=== PATIENT | female | born 1965 | race Two or more races ===

== ENCOUNTER 2018-06-25 14:01 | Day surgery (SDC) | payer OTHER ==
[2018-06-24 12:14] VITALS: BP 184/91
[2018-06-24 12:57] LABS: HCG UR SG 1.025 (1.003-1.030)
[~2018-06-25] VITALS: Ht 152.4 cm; Wt 102.7 kg
[~2018-06-25 14:01] MED LIST: ARTHRITIS MEDICATION
[2018-06-25] MEDS ORDERED: FENTANYL PF 100 MCG/2ML ONE (14:16)
[2018-06-25] MEDS ORDERED: MIDAZOLAM 1 MG/ML, 2ML ONE (14:16)
[2018-06-25] MEDS ORDERED: SILVER NITRATE STICK TP ONE (14:27)
[2018-06-25] MEDS ORDERED: KETOROLAC 30 MG/1 ML ONE (15:34)
[2018-06-25] MEDS ORDERED: ONDANSETRON 2MG/ML, 2ML ONE ×2 (15:34→18:09)
[2018-06-25] MEDS ORDERED: ROCURONIUM 10 MG/ML,10ML ONE (15:34)
[2018-06-25] MEDS ORDERED: PROPOFOL 10 MG/ML, 20ML ONE (15:34)
[2018-06-25] MEDS ORDERED: SUCCINYLCHOLINE 20 MG/ML, 10ML ONE (15:34)
[2018-06-25] MEDS ORDERED: DEXAMETHASONE 4 MG/ML, 1ML ONE (15:34)
[2018-06-25] MEDS ORDERED: PROMETHAZINE 25 MG/ML, 1ML IV PRN (17:00)
[2018-06-25] MEDS ORDERED: DIAZEPAM 5 MG/ML, 2ML IVPush PRN (17:00)
[2018-06-25] MEDS ORDERED: LORazepam 2 MG/ML, 1ML IVPush PRN (17:00)
[2018-06-25] MEDS ORDERED: ONDANSETRON ODT 8 MG PO PRN (17:00)
[2018-06-25] MEDS ORDERED: HYDROmorphone 2 MG/ML, 1ML IVPush PRN (17:00)
[2018-06-25] MEDS ORDERED: ONDANSETRON 2MG/ML, 2ML IV PRN (17:00)
[2018-06-25] MEDS ORDERED: OXYcodone 5 MG/5 ML ORAL.SOL UDC PO PRN (17:00)
[2018-06-25] MEDS ORDERED: ACETAMINOPHEN 325 MG TABLET PO PRN (17:00)
[2018-06-25] MEDS ORDERED: FENTANYL PF 100 MCG/2ML IV PRN (17:00)
[2018-06-25] MEDS ORDERED: OXYcodone 5 MG/5 ML ORAL.SOL UDC ONE (17:59)
== END 2018-06-25 20:20 | disposition home or self-care (01) ==
LOC: OR 14:01 → 4NOR 19:10 → OR 20:20
PROVIDERS: ATTEND Student in an Organized Health Care Education/Training Program
DX: T83.32XD Displacement of intrauterine contraceptive device, subsequent encounter (principal); N89.8 Other specified noninflammatory disorders of vagina; T83.32XA Displacement of intrauterine contraceptive device, initial encounter; Y83.8 Other surgical procedures as the cause of abnormal reaction of the patient, or of later complication, without mention of misadventure at the time of the procedure; Y92.89 Other specified places as the place of occurrence of the external cause; E78.00 Pure hypercholesterolemia, unspecified; Z88.0 Allergy status to penicillin; E66.01 Morbid (severe) obesity due to excess calories; Z68.42 Body mass index [BMI] 45.0-49.9, adult
CPT/HCPCS: 58562; 81025; J0330; J1100; J1885; J2250; J2405; J2704; J3010; G0378

== ENCOUNTER 2020-10-13 12:50 | Emergency (ER) | payer OTHER ==
[~2020-10-13] VITALS: Ht 144.8 cm; Wt 106.5 kg
[2020-10-13] MEDS ORDERED: MORPHINE SULFATE 4 MG/ML, 1ML IVPush PRN (14:00)
[2020-10-13] MEDS ORDERED: ONDANSETRON 2MG/ML, 2ML IVPush ONE (14:00)
[2020-10-13] MEDS ORDERED: SODIUM CHLORIDE FLUSH 10ML SYR IVF ONE (14:00)
[2020-10-13] MEDS ORDERED: KETOROLAC 30 MG/1 ML IVPush ONE (14:00)
--- NOTE | 2020-10-13 14:14 | NUR ---
PT OFF UNIT IN IMAGING.
--- NOTE | 2020-10-13 14:38 | NUR ---
PT STATES THAT PAIN IN RLQ AND RT FLANK PAIN BEGAN 3 DAYS AGO. SHE COULD NOT TAKE IT ANYMORE SO SHE CAME INTO THE ED.
[2020-10-13] MEDS ORDERED: MORPHINE SULFATE 4 MG/ML, 1ML ONE (14:41)
[2020-10-13] MEDS ORDERED: ONDANSETRON 2MG/ML, 2ML ONE (14:41)
[2020-10-13] MEDS ORDERED: KETOROLAC 30 MG/1 ML ONE (14:41)
[2020-10-13 14:43] LABS: BASOPHILS % (AUTO) 1 % (0-1); EOSINOPHILS % (AUTO) 1 % (1-7); LYMPHOCYTES % (AUTO) 22 % (22-44); MEAN CORPUSCULAR HEMOGLOBIN 32.3 pg (27.0-34.8); MEAN CORPUSCULAR HGB CONC 33.2 g/dL (32.4-35.8); MEAN PLATELET VOLUME 8.1 fL (7.4-10.4); MONOCYTES % (AUTO) 5 % (2-9); NEUTROPHILS % (AUTO) 72 % (42-75); PLATELET COUNT 274 x10^3/uL (130-400); RED CELL DISTRIBUTION WIDTH 12.9 % (9.6-15.2)
[2020-10-13 14:46] LABS: MD NO
[2020-10-13 14:55] LABS: ALANINE AMINOTRANSFERASE 38 U/L (12-78); ALBUMIN 3.6 g/dL (3.4-5.0); ANION GAP 4 mmol/L (5-15); CALCIUM 8.7 mg/dL (8.5-10.1); CHLORIDE 107 mmol/L (98-107); CREATININE 0.47 mg/dL (0.55-1.02)
[2020-10-13 14:57] LABS: ALKALINE PHOSPHATASE 102 U/L (45-117); BILIRUBIN,TOTAL 0.3 mg/dL (0.2-1.0); TOTAL PROTEIN 7.2 g/dL (6.4-8.2)
--- NOTE | 2020-10-13 15:09 | NUR ---
PT UP TO BATHROOM, AMBULATES WITHOUT DIFFICULTY.
--- NOTE | 2020-10-13 15:21 | NUR ---
PT BACK IN BED CONNECTED TO MONITORS. UA OBTAINED
[2020-10-13 15:30] LABS: MICROSCOPIC NOT IND
[2020-10-13 16:00] VITALS: BP 130/69
--- NOTE | 2020-10-13 17:12 | NUR ---
BREAK RN- DC INSTRUCTIONS REVIEWED
== END 2020-10-13 17:14 | disposition home or self-care (01) ==
LOC: ED 15:20
DX: B02.9 Zoster without complications (principal); R10.31 Right lower quadrant pain; I10 Essential (primary) hypertension; E78.00 Pure hypercholesterolemia, unspecified; E11.9 Type 2 diabetes mellitus without complications
CPT/HCPCS: 36415; 74176; 80053; 81003; 85025; 96374; 96375; 99284; J1885; J2270; J2405